=== PATIENT | female | born 1940 | race African-American/Black ===

== ENCOUNTER 2020-04-09 16:41 | Emergency (ER) | payer OTHER ==
[2020-04-09 17:07] VITALS: BP 188/100; PULSE 96; TEMP 98.3; BMI 23.5
[2020-04-09] MEDS ORDERED: LORazepam 2 MG/ML SDV VIAL ONE (17:46)
--- NOTE | 2020-04-09 18:14 | PDOC ---
Documentation entered by Suzanna Ornelas SCRIBE, acting as scribe for Yesika Darden DO. Yesika Darden DO: This documentation has been prepared by the robinibe, Suzanna Ornelas SCRIBE, under my direction and personally reviewed by me in its entirety. I confirm that the documentation accurately reflects all work, treatment, procedures, and medical decision making performed by me. Attending Attestation - Resident Resident Name: Bruce Licona - ED Attending Attestation I have performed the following: I have examined & evaluated the patient, The case was reviewed & discussed with the resident, I agree w/resident's findings & plan, Exceptions are as noted - HPI HPI: 04/09/20 17:31 Patient is a 79 year old female with an unknown significant past medical history who presents to the ED, [facility], with altered mental status and alcohol intoxication. Per EMS, they brought her in because they found her laying down in the grass. Patient mentioned something about "seeing demons". Patient disclosed she had some wine today. Patient denies: falling (says she does not remember how she got on the ground), lightheadedness, pain, or any other relate symptoms. Allergies: NKDA HPI is limited to the patient refusing to talk to healthcare team. - Physicial Exam PE: 04/09/20 18:11 Gen: awake, confused, flight of ideas, smell of etoh on her breath heart: +s1s2 tachy lungs: cta b/l abd: soft, nt/nd +bs ext: tremulous hands, unstable gait, pulses intact, no c/c/e - Medical Decision Making 04/09/20 18:11 a/p: 79yo female with a bag full of wine and with the smell of etoh found by EMS wandering with AMS -pt agitated, yelling -pt unable to ambulate with a steady gait -concern for etoh intox -will send labs, ekg -will send etoh level and drug screen -will monitor and reassess 04/09/20 18:19 resident discussed the case with the daughter, states she will come oyster picker her mother 04/09/20 18:34 daughter at the bedside to take her mother home 04/09/20 18:51 daughter escorting her mother out of the ER mother is more calm Discharge - Discharge Information Problems reviewed: Yes Clinical Impression/Diagnosis: Altered mental status Qualifiers: Altered mental status type: unspecified Qualified Code(s): R41.82 - Altered mental status, unspecified Condition: Stable Disposition: HOME - Admission No - Follow up/Referral Referrals: Jesús Vann MD [Staff Physician] - - Patient Discharge Instructions Patient Printed Discharge Instructions: Alcohol Use Disorder, DI for Alcohol Abuse, DI for Drug or Alcohol Withdrawal Additional Instructions: You came to the ED after someone called 911 upon seeing you on the ground. In the emergency department we gave you some medicine to help you calm. Please come back to the emergency department if you have any severe symptoms. Please follow up with the doctor listed in the discharge instructions within 3 days of leaving the ED. - Post Discharge Activity
--- NOTE | 2020-04-09 18:32 | PDOC ---
History of Present Illness - General Chief Complaint: Altered Mental Status Stated Complaint: AMS Time Seen by Provider: 04/09/20 17:03 - History of Present Illness Initial Comments: 04/09/20 18:27 79yo F BIBEMS after being found down outside. 911 was called by a bystander who saw the patient down in the grass. EMS reports she wast unsteady on her feet. She denies falling but cannot recall how she got to the ground. denies any pain or lightheadedness. She claims she drinks wine and has had some today. Past History - Medical History Allergies/Adverse Reactions: Allergies Allergy/AdvReac Type Severity Reaction Status Date / Time No Known Allergies Allergy Verified 04/09/20 17:06 Home Medications: Ambulatory Orders NK [No Known Home Medication] 12/01/17 COPD: No HTN: Yes (denies medications) - Reproductive History Is Patient Now?: No - Psycho-Social/Smoking History Smoking History: Never smoked Have you smoked in the past 12 months: No Information on smoking cessation initiated: No - Substance Abuse Hx (Audit-C & DAST Scrn) How often the patient has a drink containing alcohol: Never Score: In Men: 4 or > Positive; In Women: 3 or > Positive: 0 Screen Result (Pos requires Nsg. Audit-10AR): Negative Review of Systems - Review of Systems Able to Perform ROS?: No (altered mental status) Is the patient limited [place] Citizen proficient: No *Physical Exam - Vital Signs Last Vital Signs Temp Pulse Resp BP Pulse Ox 98.3 F 96 H 18 188/100 H 99 04/09/20 17:04 04/09/20 17:04 04/09/20 17:04 04/09/20 17:04 04/09/20 17:04 - Physical Exam General Appearance: Yes: Appropriately Dressed, Disheveled, Alcohol on Breath HEENT: positive: Normal Voice, Pharynx Normal, Other (L eye blindness). negative: Pale Conjunctivae, Rhinorrhea, Sinus Tenderness, Excessive drooling Neck: positive: Trachea midline, Normal Thyroid, Supple. negative: Tender, Rigid, Decreased range of motion, Rigidity, Tender midline Respiratory/Chest: positive: Lungs Clear, Normal Breath Sounds. negative: Chest Tender, Respiratory Distress, Accessory Muscle Use, Crackles, Rales Cardiovascular: positive: Regular Rhythm, S1, S2, Tachycardia. negative: Regular Rate Gastrointestinal/Abdominal: positive: Normal Bowel Sounds, Soft Rectal Exam: positive: deferred Musculoskeletal: positive: Other. negative: CVA Tenderness Extremity: positive: Other (tremor of UEs ) Integumentary: positive: Normal Color, Dry. negative: Erythema, Rash Neurologic: positive: cloud automation tester II-XII NML intact, Alert, Motor Strength 5/5, Confused, Disoriented. negative: Fully Oriented, Normal Mood/Affect Medical Decision Making - Medical Decision Making 04/09/20 18:33 Pt is acutely altered w/ EtOH on breath and trying to leave. While intox -> 2mg IM ativan given. Daughter was called per pt's request. Daughter arrived to cone picker pt. Discharge - Discharge Information Problems reviewed: Yes Clinical Impression/Diagnosis: Altered mental status Qualifiers: Altered mental status type: unspecified Qualified Code(s): R41.82 - Altered mental status, unspecified Condition: Stable Disposition: HOME - Admission No - Follow up/Referral Referrals: Jesús Vann MD [Staff Physician] - - Patient Discharge Instructions Patient Printed Discharge Instructions: Alcohol Use Disorder, DI for Alcohol Abuse, DI for Drug or Alcohol Withdrawal Additional Instructions: You came to the ED after someone called 911 upon seeing you on the ground. In the emergency department we gave you some medicine to help you calm. Please come back to the emergency department if you have any severe symptoms. Please follow up with the doctor listed in the discharge instructions within 3 days of leaving the ED. - Post Discharge Activity
== END 2020-04-09 18:50 | disposition home or self-care (01) ==
LOC: JER 16:41
PROC: 3E023NZ Introduction of Analgesics, Hypnotics, Sedatives into Muscle, Percutaneous Approach (ICD-10-PCS; principal; 2020-04-09)
DX: R41.82 Altered mental status, unspecified (principal)
CPT/HCPCS: 99284-25